=== PATIENT | male | born 1985 | race Caucasian/White ===

== ENCOUNTER 2018-01-22 19:40 | Emergency (ER) | payer SELFPAY ==
--- NOTE | 2018-01-22 20:10 | ED ---
Substance Abuse/Use - HPI Summary HPI Summary: This is juan carlos Ortiz documenting for attending Boni Villalobos MD. This patient is a 32 year old M BIBA with a chief complaint of overdose. Pt arrived via EMS and after being found unresponsive. Pt was given 4mg of Narcan en route, pt woke up and began vomiting in the ambulance. 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 The patient rates the pain 8/10 in severity. Pt reports that he doesnt know what happened to him and he only remembers waking up. Pt reports that he rarely uses drugs and hates needles. He mentioned that when he does drugs, he snorts Heroine. Occasional marijuana use. - History Of Current Complaint Chief Complaint: EDOverdose Stated Complaint: OVERDOSE Time Seen by Provider: 01/22/18 19:45 Hx Obtained From: Patient Onset/Duration of Drug/ETOH Abuse: Hours Ingestion History: Type/Name Of Drug - unknown, Amount Ingested - unknown, Approximate Time Of Ingestion - unknown Severity Initially: Severe Severity Currently: Moderate Character: Stuporous - Allergies/Home Medications Allergies/Adverse Reactions: Allergies Allergy/AdvReac Type Severity Reaction Status Date / Time amoxicillin Allergy Severe Hives Verified 01/22/18 19:54 NSAIDS (Non-Steroidal Allergy Severe Hives Verified 01/22/18 19:50 Anti-Inflamma Penicillins Allergy Severe Hives Verified 01/22/18 19:54 tramadol Allergy Severe Hives Verified 01/22/18 19:54 Home Medications: Home Medications NK [No Home Medications Reported] 01/22/18 [History Confirmed 01/22/18] PMH/Surg Hx/FS Hx/Imm Hx Endocrine/Hematology History: Denies: Hx Diabetes, Hx Thyroid Disease Cardiovascular History: Denies: Hx Hypertension Respiratory History: Reports: Hx Asthma Denies: Hx Chronic Obstructive Pulmonary Disease (COPD) GI History: Denies: Hx Ulcer Infectious Disease History: No Infectious Disease History: Denies: Hx Clostridium Difficile, Hx Hepatitis, Hx Human Immunodeficiency Virus (HIV), Hx of Known/Suspected MRSA, Traveled Outside the [place] in Last 30 Days - Family History Known Family History: Positive: Other - drug abuse - Social History Alcohol Use: Daily Alcohol Amount: 6 pack Substance Use Type: Reports: Heroin, Marijuana Smoking Status (MU): Heavy Every Day Tobacco Smoker Type: Cigarettes Amount Used/How Often: 1/2 PPD Review of Systems Negative: Fever Positive: Vomiting, Nausea All Other Systems Reviewed And Are Negative: Yes Physical Exam - Summary Physical Exam Summary: Appearance: The patient is well-nourished in no acute distress and in no acute pain. Skin: The skin is warm and dry and skin color reflects adequate perfusion. HEENT: The head is normocephalic and atraumatic. The pupils are equal and reactive. The conjunctivae are clear and without drainage. Nares are patent and without drainage. Mouth reveals moist mucous membranes and the throat is without erythema and exudate. The external ears are intact. The ear canals are patent and without drainage. The tympanic membranes are intact. Neck: The neck is supple with full range of motion and non-tender. There are no carotid bruits. There is no neck vein distension. Respiratory: Chest is non-tender. Lungs are clear to auscultation and breath sounds are symmetrical and equal. Cardiovascular: Heart is regular rate and rhythm. There is no murmur or rub auscultated. There is no peripheral edema and pulses are symmetrical and equal. Abdomen: The abdomen is soft and non-tender. There are normal bowel sounds heard in all four quadrants and there is no organomegaly palpated. Musculoskeletal: There is no back tenderness noted. Extremities are non-tender with full range of motion. There is good capillary refill. There is no peripheral edema or calf tenderness elicited. Neurological: Patient is alert and oriented to person, place and time. The patient has symmetrical motor strength in all four extremities. Cranial nerves are grossly intact. Deep tendon reflexes are symmetrical and equal in all four extremities. Psychiatric: The patient has an appropriate affect and does not exhibit any anxiety or depression. Triage Information Reviewed: Yes Vital Signs On Initial Exam: Initial Vitals Temp Pulse Resp BP Pulse Ox 98.3 F 95 28 153/121 100 01/22/18 19:42 01/22/18 19:42 01/22/18 19:42 01/22/18 19:42 01/22/18 19:42 Vital Signs Reviewed: Yes Diagnostics - Vital Signs Vital Signs Temp Pulse Resp BP Pulse Ox 01/22/18 19:46 93 22 100 01/22/18 19:44 93 17 157/117 100 01/22/18 19:42 98.3 F 95 28 153/121 100 - Laboratory Lab Statement: Any lab studies that have been ordered have been reviewed, and results considered in the medical decision making process. Course/Dx - Course Course Of Treatment: Mr. Logan presented after recovering from an unresponsive state with the use of Narcan. While here he maintained that he did not take any opiates and that he is in recovery. I watched him until the Narcan wore off and he was fine. He was not willing to discuss any follow-up plan as he continued to deny that he had taken any drugs. - Diagnoses Provider Diagnoses: Opiate overdose Discharge - Sign-Out/Discharge Documenting (check all that apply): Patient Departure - Discharge - Discharge Plan Condition: Stable Disposition: HOME Patient Education Materials: Opioid Overdose (ED) Referrals: [facility] REFERR[facility] [Outside] - 3 Days Additional Instructions: RETURN TO THE EMERGENCY DEPARTMENT FOR CHANGING OR WORSENING SYMPTOMS. - Billing Disposition and Condition Condition: STABLE Disposition: Home
[2018-01-22 21:01] VITALS: BP 153/83
== END 2018-01-22 21:11 | disposition home or self-care (01) ==
LOC: ED 19:40
DX: T40.601A Poisoning by unspecified narcotics, accidental (unintentional), initial encounter (principal); Y92.9 Unspecified place or not applicable; F17.210 Nicotine dependence, cigarettes, uncomplicated; Z88.0 Allergy status to penicillin; J45.909 Unspecified asthma, uncomplicated
CPT/HCPCS: 36415; 86703; 99282

== ENCOUNTER 2019-09-16 19:32 | Emergency (ER) | payer OTHER ==
--- NOTE | 2019-09-16 19:46 | UC ---
UC General HPI - HPI Summary HPI Summary: Fever started today - took alleve about an hour ago. Woke up few days ago with pain in side, No significant pain with walking, barely able to ambulate No trauma Hip: left side Admits to IVDU - last injected a few days ago Temp: 102.3 No cough No URI symptoms No urinary s/s No abdominal pain No N/V/D PMhx: Asthma - History of Current Complaint Stated Complaint: LEG, HIP PAIN Time Seen by Provider: 09/16/19 19:33 - Allergy/Home Medications Allergies/Adverse Reactions: Allergies Allergy/AdvReac Type Severity Reaction Status Date / Time amoxicillin Allergy Severe Hives Verified 09/14/18 03:33 NSAIDS (Non-Steroidal Allergy Severe Hives Verified 09/14/18 03:33 Anti-Inflamma Penicillins Allergy Severe Hives Verified 09/14/18 03:33 tramadol Allergy Severe Hives Verified 09/14/18 03:33 aspirin Allergy Unknown Verified 09/14/18 03:37 Reaction Details Home Medications: Home Medications NK [No Home Medications Reported] 01/22/18 [History Confirmed 01/22/18] PMH/Surg Hx/FS Hx/Imm Hx Previously Healthy: Yes Respiratory History: Asthma - Surgical History Surgical History: None - Family History Known Family History: Positive: Other - drug abuse - Social History Alcohol Use: Daily Alcohol Amount: 6 pack Substance Use Type: Heroin, Marijuana Smoking Status (MU): Heavy Every Day Tobacco Smoker Type: Cigarettes Amount Used/How Often: 1/2 PPD - Immunization History Most Recent Tetanus Shot: <5 YEARS Review of Systems All Other Systems Reviewed And Are Negative: Yes Constitutional: Positive: Fever Musculoskeletal: Positive: Decreased ROM Physical Exam Triage Information Reviewed: Yes Appearance: Other: - ill appearing Eyes: Positive: Conjunctiva Clear Neck: Positive: Supple Respiratory: Positive: Lungs clear, Decreased breath sounds Cardiovascular: Positive: Tachycardia Abdomen Description: Positive: Soft Musculoskeletal: Positive: Other: - Hip limited internal and external rotation due to significant pain Able to straight leg raise to about 60 degrees Skin: Positive: Other - maculopapular rash over torso with petechia Course/Dx - Course Course Of Treatment: This is a 33 yr old with PMHx of IVDU who has left hip pain and a fever Concern for septic hip Ill appearing Patient will have father who is waiting out in the car drive him to [facility] ED Sign out given to Dr. Stallings Plan Drive directly to [facility] ED for further evaluation and concern for a septic hip - Diagnoses Provider Diagnosis: Hip joint pain Discharge ED - Sign-Out/Discharge Documenting (check all that apply): Patient Departure All imaging exams completed and their final reports reviewed: No Studies - Discharge Plan Condition: Fair Disposition: HOME-RECOMMEND TO ED Referrals: [facility]IAN REFERRAL [Outside] No Primary Care Phys,NOPCP [Primary Care Provider] - Additional Instructions: Recommend you go directly to [facility] ER for further evaluation for evaluation of your hip I am concerned you have a septic hip joint - Billing Disposition and Condition Condition: FAIR Disposition: Home-Recommend to ED
[2019-09-16 20:06] VITALS: BP 112/60
== END 2019-09-16 20:00 | disposition home health service (06) ==
LOC: UCEAST 19:32
DX: M25.552 Pain in left hip (principal); R50.9 Fever, unspecified; R21 Rash and other nonspecific skin eruption; Z88.6 Allergy status to analgesic agent; Z88.5 Allergy status to narcotic agent; Z88.0 Allergy status to penicillin; F17.210 Nicotine dependence, cigarettes, uncomplicated
CPT/HCPCS: 99213; G0463